=== PATIENT | female | born 1945 | race Caucasian/White ===

== ENCOUNTER 2017-02-25 02:40 | Emergency (ER) | payer MEDICARE ==
[~2017-02-25 02:40] MED LIST: ALEVE220 MG PO; ASPIR-LOW81 MG; CALCIUM + D T1 UDTAB PO; CALCIUM + VITA1 EAC1 PO; CALCIUM PO; CALCIUM500 M2 PO; CENTRUM SILVER1 EAC3 PO; CENTRUM SILVER1 TA PO; CINNAMON500 MG PO; CLINDAMYCIN HC300 M2 PO; COLACE100 MG PO; COREG3.125 M1 PO; COREG3.125 MG PO; EQL FISH OIL 1,1 CA1 PO; FLECAINIDE ACET50 M1 PO; FLECAINIDE ACET50 MG PO; GLIPIZIDE XL10 M1 PO; GLIPIZIDE XL5 MG PO; GLIPIZIDE5 MG PO; GLUCAGON1 MG/KIT IM; GLUCOTROL XL5 M1 PO; IRON1 TA1 PO; LISINOPRIL20 M1 PO; LISINOPRIL20 MG PO; LUNESTA2 MG PO; MECLIZINE HCL12.5 M1 PO; MOBIC7.5 M2 PO; NEXIUM40 MG PO; NORCO 5-325 TA1 EACH PO; NORCO 5/3251 TA1 PO; PANTOPRAZOLE; PERCOCET 5-3251 EACH PO; PERCOCET 5MG/AP1 TA1 PO; POTASSIUM; POTASSIUM99 M1 PO; PRILOSEC40 MG PO; PROTONIX40 M1 PO; PROTONIX40 M2 PO; SIMVASTATIN20 MG PO; STOOL SOFT-STI1 EACH PO; TYLENOL EXTRA500 M1 PO; TYLENOL PM PO; ULTRAM50 M1 PO; UNISOM25 M1 PO; UNISOM25 MG PO; UNISOM50 MG/30 M PO; VITA PO; XARELTO20 M1 PO; XARELTO20 MG PO; ZOCOR20 M1 PO; ZYVOX600 MG PO; [UNRECOGNIZED DRUG - OTHER] PO; [UNRECOGNIZED DRUG - OTHER] PO; [UNRECOGNIZED DRUG - OTHER] PO
[2017-02-25 03:21] LABS: BASO % 0.9 % (0-2); EOS % 1.1 % (0-7); HCT-HEMATOCRIT 36.1 % (34.0-49.0); HGB-HEMOGLOBIN 11.2 gm/dl (12.0-15.5); IMMATURE GRANULOCYTES ABSOLUTE 0.43 tho/cmm (0-0.03); IMMATURE GRANULOCYTES PERCENT 0.4 % (0-0.3); LYMPH % 89.5 % (20-45); MCH (MEAN CORPUSCULAR HGB) 29.9 pg (28.0-32.0); MCV (MEAN CELL VOLUME) 96.5 fl (82.0-96.0); MONO % 2.7 % (0-12); NEUTROPHIL ABSOLUTE COUNT 5.6 tho/cmm (1.6-8.0); NEUTROPHIL-AUTOMATED 5.6 tho/cmm (1.6-8.0); NEUTROPHILS % 5.4 % (40-80); PLATELET COUNT 285 tho/cmm (150-450); RED BLOOD COUNT 3.74 mil/cmm (4.00-5.20); RED CELL DISTRIBUTION WIDTH 13.7 % (12.4-16.4)
[2017-02-25] MEDS ORDERED: ZOCOR20 M1 PO (03:28)
[2017-02-25] MEDS ORDERED: VITAMIN D31000 UNI3 PO (03:29)
[2017-02-25] MEDS ORDERED: ESCITALOPRAM (03:30)
[2017-02-25 03:31] LABS: ANION GAP 13 mmol/L (0-20); BLOOD UREA NITROGEN 12 mg/dl (6-24); CALCIUM 8.3 mg/dl (8.5-10.5); CARBON DIOXIDE-VENOUS 25 mmol/L (22-32); CHLORIDE 109 mmol/l (96-110); CREATININE 0.96 mg/dl (0.50-1.10); EOSINOPHIL ABSOLUTE COUNT 1.2 tho/cmm (0.0-0.7); GLUCOSE 102 mg/dL (70-110); LYMPH ABSOLUTE COUNT 93.7 tho/cmm (0.8-4.5); MONOCYTE ABSOLUTE COUNT 2.9 tho/cmm (0.0-1.2); POTASSIUM 4.9 mmol/L (3.7-5.1); SODIUM 142 mmol/L (135-145); eGFR VALUE FOR BLACK 68 mL/Min
[2017-02-25] MEDS ORDERED: LEXAPRO10 M2 PO (03:31)
[2017-02-25 04:35] LABS: WHITE BLOOD COUNT 104.7 tho/cmm (4.0-10.0)
[2017-02-25 04:47] LABS: WBC MORPHOLOGY VARIANT LYMPHS
[2017-02-25] MEDS ORDERED: NORCO 5-325 TA1 EACH PO (05:05)
[2017-05-31] MEDS ORDERED: [UNRECOGNIZED DRUG - OTHER] PO (08:36)
[2017-05-31] MEDS ORDERED: HYDROCODONE-HOMA5 ML PO (09:27)
== END 2017-02-25 05:20 ==
LOC: EDMED 02:40
PROVIDERS: Emergency Medicine
DX: M54.5 Low back pain (principal); C91.10 Chronic lymphocytic leukemia of B-cell type not having achieved remission; I11.9 Hypertensive heart disease without heart failure; I48.91 Unspecified atrial fibrillation; E11.9 Type 2 diabetes mellitus without complications; Z90.49 Acquired absence of other specified parts of digestive tract; Z98.890 Other specified postprocedural states; Z79.899 Other long term (current) drug therapy
CPT/HCPCS: J2270; J2405